=== PATIENT | male | born 1975 | race African-American/Black ===

== ENCOUNTER 2019-06-16 19:21 | Emergency (ER) | payer OTHER ==
[~2019-06-16] VITALS: Ht 185.4 cm; Wt 83.9 kg
[2019-06-16 19:40] VITALS: BP 144/103
--- NOTE | 2019-06-16 19:50 | Emergency Room Report ---
History of Present Illness General Chief Complaint: General Complaint Source: Patient Present Illness HPI 44-year-old male presents with spasms of the left leg, he states his leg starts kicking and flapping around, no known aggravating relieving factors episodes last a few minutes, has been ongoing since 3 days ago, he denies any focal weakness, no headache no changes in vision no chest pain no shortness of breath , severity is moderate, intermittent patient presents for evaluation Allergies: Coded Allergies: No Known Allergies (Unverified , 06/16/19) Patient History Past Medical History: see triage record Reviewed Nursing Documentation: PMH: Agreed; PSxH: Agreed Nursing Documentation-PMH Past Medical History: No Stated History Review of Systems All Other Systems: negative except mentioned in HPI Physical Exam Vital Signs Date Time Temp Pulse Resp B/P (MAP) Pulse Ox O2 Delivery O2 Flow Rate FiO2 06/16/19 19:37 98.4 101 18 141/102 (115) 96 Sp02 EP Interpretation: reviewed, normal General Appearance: well appearing, no apparent distress, alert Head: normocephalic, atraumatic Eyes: bilateral eye PERRL, bilateral eye EOMI ENT: uvula midline, moist mucus membranes Neck: supple, thyroid normal, supple/symm/no masses Respiratory: lungs clear, no respiratory distress, no retraction, no accessory muscle use Cardiovascular #1: normal peripheral pulses, regular rate, rhythm, no edema, no gallop, no murmur Gastrointestinal: non tender, soft, no guarding, no rebound Musculoskeletal: normal inspection Neurologic: alert, width stripper III-XII nml as tested, oriented x3, sensory intact, cerebellar normal, speech normal, normal gait, other - Cranial nerves II through XII intact, finger-nose testing intact, 5 out of 5 strength upper and lower extremities, left leg is noted to spasm occasionally his gait is intact only altered when his leg starts spasming Psychiatric: mood/affect normal Skin: no rash, warm/dry Medical Decision Making Diagnostic Impression: Primary Impression: Leg muscle spasm Qualified Codes: M62.838 - Other muscle spasm ER Course 44-year-old male presents with sudden spasming of the left leg, differential diagnosis includes drug use, stroke, generalized muscle spasm CT brain: No acute processes, the symptoms have been ongoing since Friday, if stroke, patient would have positive image findings Patient with PCP, amphetamines as well as marijuana positive in UDS which may contribute to leg spasms Counseled patient disposition home with return precautions no emergent pathology at this point Laboratory Tests Test 06/16/19 20:00 White Blood Count 6.7 K/UL (4.8-10.8) Red Blood Count 5.53 M/UL (4.70-6.10) Hemoglobin 15.6 G/DL (14.2-18.0) Hematocrit 45.6 % (42.0-52.0) Mean Corpuscular Volume 82 FL (80-99) Mean Corpuscular Hemoglobin 28.2 PG (27.0-31.0) Mean Corpuscular Hemoglobin Concent 34.2 G/DL (32.0-36.0) Red Cell Distribution Width 11.3 % (11.6-14.8) L Platelet Count 268 K/UL (150-450) Mean Platelet Volume 5.8 FL (6.5-10.1) L Neutrophils (%) (Auto) 48.5 % (45.0-75.0) Lymphocytes (%) (Auto) 37.5 % (20.0-45.0) Monocytes (%) (Auto) 6.2 % (1.0-10.0) Eosinophils (%) (Auto) 3.0 % (0.0-3.0) Basophils (%) (Auto) 4.8 % (0.0-2.0) H Prothrombin Time 9.6 SEC (9.30-11.50) Prothrombin Time INR 0.9 (0.9-1.1) PTT 27 SEC (23-33) Urine Color Pale yellow Urine Appearance Clear Urine pH 6 (4.5-8.0) Urine Specific [place] 1.020 (1.005-1.035) Urine Protein Negative (NEGATIVE) Urine Glucose (UA) Negative (NEGATIVE) Urine Ketones Negative (NEGATIVE) Urine Blood 1+ (NEGATIVE) H Urine Nitrite Negative (NEGATIVE) Urine Bilirubin Negative (NEGATIVE) Urine Urobilinogen Normal MG/DL (0.0-1.0) Urine Leukocyte Esterase 1+ (NEGATIVE) H Urine RBC 0-2 /HPF (0 - 0) H Urine WBC 2-4 /HPF (0 - 0) Urine Squamous Epithelial Cells None /LPF (NONE/OCC) Urine Bacteria Few /HPF (NONE) Sodium Level 145 MMOL/L (136-145) Potassium Level 3.6 MMOL/L (3.5-5.1) Chloride Level 107 MMOL/L (98-107) Carbon Dioxide Level 30 MMOL/L (21-32) Anion Gap 8 mmol/L (5-15) Blood Urea Nitrogen 12 mg/dL (7-18) Creatinine 0.9 MG/DL (0.55-1.30) Estimate Glomerular Filtration Rate > 60 mL/min (>60) Glucose Level 99 MG/DL (74-106) Calcium Level 9.0 MG/DL (8.5-10.1) Phosphorus Level 4.0 MG/DL (2.5-4.9) Magnesium Level 1.8 MG/DL (1.8-2.4) Total Bilirubin 0.2 MG/DL (0.2-1.0) Aspartate Amino Transferase (AST) 31 U/L (15-37) Alanine Aminotransferase (ALT) 46 U/L (12-78) Alkaline Phosphatase 93 U/L (46-116) Total Creatine Kinase 803 U/L (26-308) H Creatine Kinase MB 2.3 NG/ML (0.0-3.6) Creatine Kinase MB Relative Index 0.2 Total Protein 7.9 G/DL (6.4-8.2) Albumin 3.9 G/DL (3.4-5.0) Globulin 4.0 g/dL Albumin/Globulin Ratio 1.0 (1.0-2.7) Urine Opiates Screen Negative (NEGATIVE) Urine Barbiturates Screen Negative (NEGATIVE) Phencyclidine (PCP) Screen Positive (NEGATIVE) H Urine Amphetamines Screen Positive (NEGATIVE) H Urine Benzodiazepines Screen Negative (NEGATIVE) Urine Cocaine Screen Positive (NEGATIVE) H Urine Marijuana (THC) Screen Negative (NEGATIVE) EKG Diagnostic Results EKG Time: 19:55 EP Interpretation: NSR rate 95 qtc 469 normal axis no acute st elevations Rhythm Strip Diag. Results Rhythm Strip Time: 20:08 EP Interpretation: yes Rate: 89 Rhythm: NSR, no PVC's, no ectopy CT/MRI/US Diagnostic Results CT/MRI/US Diagnostic Results : Impression Final Report EXAM: CT Head Without Intravenous Contrast CLINICAL HISTORY: WEAK TECHNIQUE: Axial computed tomography images of the head/brain without intravenous contrast. CTDI is 63 mGy and DLP is 1394 mGy-cm. One or more of the following dose reduction techniques were used: automated exposure control, adjustment of the mA and/or kV according to patient size, use of iterative reconstruction technique. COMPARISON: No relevant prior studies available. FINDINGS: Brain: Negative for mass, mass-effect or intracranial hemorrhage. No significant white matter disease. Ventricles: Unremarkable. No ventriculomegaly. Bones/joints: Unremarkable. No acute fracture. Soft tissues: Unremarkable. Sinuses: Unremarkable as visualized. No acute sinusitis. Mastoid air cells: Unremarkable as visualized. No mastoid effusion. IMPRESSION: No imaging explanation for weakness Radiologist: Chai Murillo MD Electronically Signed: 06/16/19 20:45 Last Vital Signs Date Time Temp Pulse Resp B/P (MAP) Pulse Ox O2 Delivery O2 Flow Rate FiO2 06/16/19 19:37 98.4 101 18 141/102 (115) 96 Disposition: HOME, SELF-CARE Condition: Stable Scripts Cyclobenzaprine Hcl* (FLEXERIL*) 10 Mg Tablet 10 MG ORAL THREE TIMES A DAY PRN for MUSCLE SPASM, #30 TAB Prov: Seth Amin MD 06/16/19 Referrals: [facility] Patient Instructions: Muscle Cramps and Spasms, [id number] Additional Instructions: The patient was provided with discharge instructions, notified to follow-up with a primary care doctor and or specialist in the next 24-48 hours, and to return to the ED if they have worsening of their symptoms. Please note that this report is being documented using [employer] technology. This can lead to erroneous entry secondary to incorrect interpretation by the dictating instrument. FOLLOW-UP WITH NEUROLOGY AND PCP Seth Amin MD Jun 16, 2019 19:50
[2019-06-16 20:26] LABS: BASOPHILS % (AUTO) 4.8 % (0.0-2.0); HEMATOCRIT 45.6 % (42.0-52.0); HEMOGLOBIN 15.6 G/DL (14.2-18.0); LYMPHOCYTES % (AUTO) 37.5 % (20.0-45.0); MEAN CORPUSCULAR VOLUME 82 FL (80-99); MONOCYTES % (AUTO) 6.2 % (1.0-10.0); NEUTROPHILS % (AUTO) 48.5 % (45.0-75.0); PLATELET COUNT 268 K/UL (150-450); RED BLOOD COUNT 5.53 M/UL (4.70-6.10); RED CELL DISTRIBUTION WIDTH 11.3 % (11.6-14.8); WHITE BLOOD COUNT 6.7 K/UL (4.8-10.8)
[2019-06-16 20:30] LABS: APPEARANCE,URINE CLEAR; BILIRUBIN, URINE NEGATIVE (NEGATIVE); COLOR,URINE PALE YELLOW; GLUCOSE, URINE (UA) NEGATIVE (NEGATIVE); KETONES,URINE NEGATIVE (NEGATIVE); LEUKOCYTE ESTERASE ,URINE 1+ (NEGATIVE); NITRITE,URINE NEGATIVE (NEGATIVE); PH,URINE 6 (4.5-8.0); PROTEIN,URINE NEGATIVE (NEGATIVE); UROBILINOGEN,URINE NORMAL MG/DL (0.0-1.0)
[2019-06-16 20:33] LABS: INR 0.9 (0.9-1.1)
[2019-06-16 20:37] LABS: ANION GAP 8 mmol/L (5-15); BLOOD UREA NITROGEN 12 mg/dL (7-18); CARBON DIOXIDE 30 MMOL/L (21-32); CHLORIDE 107 MMOL/L (98-107); CREATININE 0.9 MG/DL (0.55-1.30); POTASSIUM 3.6 MMOL/L (3.5-5.1); SODIUM 145 MMOL/L (136-145)
[2019-06-16 20:51] LABS: ALANINE AMINOTRANSFERASE 46 U/L (12-78); ALBUMIN 3.9 G/DL (3.4-5.0); ALKALINE PHOSPHATASE 93 U/L (46-116); ASPARTATE AMINO TRANSFERASE 31 U/L (15-37); BILIRUBIN,TOTAL 0.2 MG/DL (0.2-1.0); CKMB 2.3 NG/ML (0.0-3.6); CREATINE KINASE 803 U/L (26-308)
[2019-06-16] MEDS ORDERED: CYCLOBENZAPRINE10 MG ORAL (20:59)
[2019-06-16 21:23] VITALS: BP 143/99
== END 2019-06-16 21:23 | disposition home or self-care (01) ==
LOC: EMR 19:50
DX: M62.838 Other muscle spasm (principal)
CPT/HCPCS: 36415; 70450; 80053; 80307; 81003; 82550; 82553; 82962; 83735; 84100; 85025; 85610; 85730; 93005; Z7502; 99284

== ENCOUNTER 2020-01-30 20:14 | Emergency (ER) | payer MEDICAID, OTHER ==
[~2020-01-30] VITALS: Ht 185.4 cm; Wt 81.6 kg
[~2020-01-30 20:14] MED LIST: CYCLOBENZAPRINE10 MG ORAL
--- NOTE | 2020-01-30 20:53 | Emergency Room Report ---
History of Present Illness General Chief Complaint: Abdominal Pain Source: Patient Present Illness HPI Patient presents with epigastric pain. He has been drinking alcohol and smoking marijuana recently. He states he has never had this type of pain before. He tried Pepto-Bismol today without help. He states he feels nauseated but has not been vomiting. He denies melena or hematochezia. No fevers, chills, sore throat, chest pain, palpitations, dysuria, shortness of breath, joint pain, rashes, depression, anxiety, visual changes, dizziness, headache. Allergies: Coded Allergies: No Known Allergies (Unverified , 06/16/19) COVID-19 Screening Contact w/high risk pt: No Experienced COVID-19 symptoms?: No COVID-19 Testing performed EVENT SPECIALIST: No Patient History Past Medical History: see triage record Social History: Reports: smoking, alcohol use, drug use - Denied but see tox screen Social History Narrative From home Reviewed Nursing Documentation: PMH: Agreed; PSxH: Agreed Nursing Documentation-PMH Past Medical History: No Stated History Review of Systems All Other Systems: negative except mentioned in HPI Physical Exam Vital Signs Date Time Temp Pulse Resp B/P (MAP) Pulse Ox O2 Delivery O2 Flow Rate FiO2 01/30/20 20:25 98.6 90 20 128/85 (99) 99 Sp02 EP Interpretation: reviewed, normal General Appearance: alert, GCS 15, non-toxic, mild distress Head: normocephalic Eyes: bilateral eye PERRL, bilateral eye EOMI, bilateral eye Scleral Injection ENT: moist mucus membranes Neck: supple Respiratory: lungs clear, normal breath sounds Cardiovascular #1: regular rate, rhythm Cardiovascular #2: 2+ radial (R) Gastrointestinal: normal bowel sounds, no mass, non-distended, no guarding, no rebound, tenderness - Reported epigastric Genitourinary: no CVA tenderness Musculoskeletal: back normal, normal range of motion, gait/station normal Neurologic: alert, oriented x3, grossly normal Psychiatric: mood/affect normal Skin: no rash, warm/dry Medical Decision Making Diagnostic Impression: Primary Impression: Gastritis Qualified Codes: K29.20 - Alcoholic gastritis without bleeding Additional Impression: Substance abuse ER Course Patient presents with epigastric pain and nausea with history of alcohol and THC use. Differential includes gastritis, pancreatitis, peptic ulcer disease, reflux esophagitis, acute myocardial infarction amongst others. Patient evaluated with EKG and labs. Patient treated with Reglan, Benadryl, Mylanta and viscous lidocaine. Patient placed on the monitor worker. IV hydration started. EKG without injury. Labs with normal white count, hemoglobin and CMP with minimally low potassium. Lipase normal. Urine tox positive for amphetamines, cocaine and THC. After treatment, patient sleeping and no distress. As prolonged QT cannot give Zofran. Patient tolerating oral intake. Pain resolved. Discussed treatment plan with patient. Also advised to abstain from stimulants. Patient stable for outpatient observation and treatment. Laboratory Tests Test 01/30/20 20:40 01/30/20 22:52 White Blood Count 6.9 K/UL (4.8-10.8) Red Blood Count 5.21 M/UL (4.70-6.10) Hemoglobin 14.2 G/DL (14.2-18.0) Hematocrit 44.9 % (42.0-52.0) Mean Corpuscular Volume 86 FL (80-99) Mean Corpuscular Hemoglobin 27.3 PG (27.0-31.0) Mean Corpuscular Hemoglobin Concent 31.7 G/DL (32.0-36.0) L Red Cell Distribution Width 13.3 % (11.6-14.8) Platelet Count 294 K/UL (150-450) Mean Platelet Volume 6.6 FL (6.5-10.1) Neutrophils (%) (Auto) 56.7 % (45.0-75.0) Lymphocytes (%) (Auto) 31.1 % (20.0-45.0) Monocytes (%) (Auto) 7.1 % (1.0-10.0) Eosinophils (%) (Auto) 2.4 % (0.0-3.0) Basophils (%) (Auto) 2.7 % (0.0-2.0) H Prothrombin Time 11.3 SEC (9.30-11.50) Prothrombin Time INR 1.0 (0.9-1.1) Activated Partial Thromboplast Time 29 SEC (23-33) Sodium Level 141 MMOL/L (136-145) Potassium Level 3.3 MMOL/L (3.5-5.1) L Chloride Level 101 MMOL/L (98-107) Carbon Dioxide Level 34 MMOL/L (21-32) H Anion Gap 6 mmol/L (5-15) Blood Urea Nitrogen 9 mg/dL (7-18) Creatinine 1.3 MG/DL (0.55-1.30) Estimated Glomerular Filtration Rate > 60 mL/min (>60) Glucose Level 112 MG/DL (74-106) H Calcium Level 9.4 MG/DL (8.5-10.1) Total Bilirubin 0.3 MG/DL (0.2-1.0) Aspartate Amino Transferase (AST) 17 U/L (15-37) Alanine Aminotransferase (ALT) 17 U/L (12-78) Alkaline Phosphatase 115 U/L (46-116) Total Creatine Kinase 214 U/L (26-308) Troponin I 0.000 ng/mL (0.000-0.056) Total Protein 8.2 G/DL (6.4-8.2) Albumin 3.8 G/DL (3.4-5.0) Globulin 4.4 g/dL Albumin/Globulin Ratio 0.9 (1.0-2.7) L Lipase 222 U/L (73-393) Serum Alcohol < 3 mg/dL Urine Color Pale yellow Urine Appearance Clear Urine pH 9 (4.5-8.0) Urine Specific [place] 1.015 (1.005-1.035) Urine Protein Negative (NEGATIVE) Urine Glucose (UA) Negative (NEGATIVE) Urine Ketones Negative (NEGATIVE) Urine Blood Negative (NEGATIVE) Urine Nitrite Negative (NEGATIVE) Urine Bilirubin Negative (NEGATIVE) Urine Urobilinogen Normal MG/DL (0.0-1.0) Urine Leukocyte Esterase Negative (NEGATIVE) Urine Opiates Screen Negative (NEGATIVE) Urine Barbiturates Screen Negative (NEGATIVE) Phencyclidine (PCP) Screen Negative (NEGATIVE) Urine Amphetamines Screen Positive (NEGATIVE) H Urine Benzodiazepines Screen Negative (NEGATIVE) Urine Cocaine Screen Positive (NEGATIVE) H Urine Marijuana (THC) Screen Positive (NEGATIVE) H EKG Diagnostic Results Rate: normal Rhythm: NSR ST Segments: no acute changes - prolonged QT Rhythm Strip Diag. Results EP Interpretation: yes Rhythm: NSR, no PVC's, no ectopy Last Vital Signs Date Time Temp Pulse Resp B/P (MAP) Pulse Ox O2 Delivery O2 Flow Rate FiO2 01/30/20 21:00 98.6 88 15 120/68 96 Room Air Status: improved Disposition: HOME, SELF-CARE Condition: Improved Scripts Acetaminophen (Tylenol) 325 Mg Tablet 650 MG ORAL Q6H PRN for Prn Pain/Headache/Temp > 101, #20 TAB 0 Refills Prov: Suresh Lipscomb MD 01/30/20 Mag Hydrox/Aluminum Hyd/Simeth (Mylanta Maximum Strength Liq) 355 Ml Oral.susp 30 ML PO Q6HR PRN for abdominal pain, #240 ML Prov: Suresh Lipscomb MD 01/30/20 Famotidine* (Pepcid 20mg tablet*) 20 Mg Tablet 20 MG ORAL DAILY, #30 TAB 0 Refills Prov: Suresh Lipscomb MD 01/30/20 Suresh Lipscomb MD Jan 30, 2020 20:52
[2020-01-30 21:00] VITALS: BP 120/68
[2020-01-30] MEDS ORDERED: DiphenhydrAMINE 50mg/ml Inj IVP ONE (21:00)
[2020-01-30] MEDS ORDERED: Metoclopramide 10mg/2ml Inj IVP ONE (21:00)
[2020-01-30] MEDS ORDERED: Lidocaine 2% Visc 15ml soln ORAL ONE (21:00)
[2020-01-30] MEDS ORDERED: Mylanta II UD 30ml ORAL ONE (21:00)
[2020-01-30 21:31] LABS: BASOPHILS % (AUTO) 2.7 % (0.0-2.0); EOSINOPHILS % (AUTO) 2.4 % (0.0-3.0); HEMATOCRIT 44.9 % (42.0-52.0); HEMOGLOBIN 14.2 G/DL (14.2-18.0); LYMPHOCYTES % (AUTO) 31.1 % (20.0-45.0); MEAN CORPUSCULAR VOLUME 86 FL (80-99); MONOCYTES % (AUTO) 7.1 % (1.0-10.0); NEUTROPHILS % (AUTO) 56.7 % (45.0-75.0); PLATELET COUNT 294 K/UL (150-450); RED BLOOD COUNT 5.21 M/UL (4.70-6.10); RED CELL DISTRIBUTION WIDTH 13.3 % (11.6-14.8); WHITE BLOOD COUNT 6.9 K/UL (4.8-10.8)
[2020-01-30 21:39] LABS: ANION GAP 6 mmol/L (5-15); BLOOD UREA NITROGEN 9 mg/dL (7-18); CALCIUM 9.4 MG/DL (8.5-10.1); CARBON DIOXIDE 34 MMOL/L (21-32); CHLORIDE 101 MMOL/L (98-107); CREATININE 1.3 MG/DL (0.55-1.30); POTASSIUM 3.3 MMOL/L (3.5-5.1); SODIUM 141 MMOL/L (136-145)
[2020-01-30 21:46] LABS: ALANINE AMINOTRANSFERASE 17 U/L (12-78); ALBUMIN 3.8 G/DL (3.4-5.0); ALBUMIN/GLOBULIN RATIO 0.9 (1.0-2.7); ALKALINE PHOSPHATASE 115 U/L (46-116); ASPARTATE AMINO TRANSFERASE 17 U/L (15-37); BILIRUBIN,TOTAL 0.3 MG/DL (0.2-1.0); CREATINE KINASE 214 U/L (26-308)
[2020-01-30] MEDS ORDERED: FAMOTIDINE20 MG ORAL (21:57)
[2020-01-30] MEDS ORDERED: MYLANTA MAXIMU355 ML PO (21:57)
[2020-01-30] MEDS ORDERED: TYLENOL325 MG ORAL (21:57)
[2020-01-30 23:08] LABS: APPEARANCE,URINE CLEAR; BILIRUBIN, URINE NEGATIVE (NEGATIVE); COLOR,URINE PALE YELLOW; GLUCOSE, URINE (UA) NEGATIVE (NEGATIVE); KETONES,URINE NEGATIVE (NEGATIVE); NITRITE,URINE NEGATIVE (NEGATIVE); PH,URINE 9 (4.5-8.0); PROTEIN,URINE NEGATIVE (NEGATIVE); UROBILINOGEN,URINE NORMAL MG/DL (0.0-1.0)
[2020-01-30 23:14] LABS: LEUKOCYTE ESTERASE ,URINE NEGATIVE (NEGATIVE)
[2020-01-30 23:52] VITALS: BP 117/82
== END 2020-01-30 23:52 | disposition home or self-care (01) ==
LOC: EMR 20:46
DX: K29.20 Alcoholic gastritis without bleeding (principal); F19.10 Other psychoactive substance abuse, uncomplicated
CPT/HCPCS: 36415; 80053; 80307; 81003; 82550; 83690; 84484; 85025; 85610; 85730; 93005; 96361; 96374; 96375; G0480; J1200; J2765; J7030; S0028; Z7502; 99284